=== PATIENT | male | born 1990 | race Caucasian/White ===

== ENCOUNTER 2018-03-21 14:18 | Emergency (ER) | payer OTHER ==
[~2018-03-21] VITALS: Ht 180.3 cm; Wt 94.3 kg
[2018-03-21] MEDS ORDERED: FLEXERIL PO (14:23)
[2018-03-21] MEDS ORDERED: NAPROSYN500 MG PO (14:23)
[2018-03-21 15:23] VITALS: BP 119/75
== END 2018-03-21 15:24 | disposition home or self-care (01) ==
LOC: M.ERS 14:18
DX: S63.91XA Sprain of unspecified part of right wrist and hand, initial encounter (principal); X58.XXXA Exposure to other specified factors, initial encounter; Y93.89 Activity, other specified; Y92.89 Other specified places as the place of occurrence of the external cause; Y99.8 Other external cause status

== ENCOUNTER 2020-10-11 11:01 | Emergency (ER) | payer OTHER ==
[~2020-10-11] VITALS: Ht 180.3 cm; Wt 91.6 kg
[~2020-10-11 11:01] MED LIST: FLEXERIL PO; NAPROSYN500 MG PO
[2020-10-11] MEDS ORDERED: KEFLEX500 M1 PO (11:47)
[2020-10-11] MEDS ORDERED: BACTRIM DS TAB1 EACH PO (11:47)
[2020-10-11 12:06] VITALS: BP 123/88
== END 2020-10-11 12:07 | disposition home or self-care (01) ==
LOC: M.ERS 11:01
DX: L02.214 Cutaneous abscess of groin (principal); F17.210 Nicotine dependence, cigarettes, uncomplicated